=== PATIENT | male | born 1970 | race Caucasian/White ===

== ENCOUNTER 2020-08-30 23:28 | Emergency (ER) | payer OTHER ==
[~2020-08-30] VITALS: Ht 165.1 cm; Wt 56.0 kg
[2020-08-31] MEDS ORDERED: IBUPROFEN 600MG TABLET PO ONE (00:15)
[2020-08-31] MEDS ORDERED: SILVER SULFADIAZINE 1% CREAM 25GM TOP ONE (00:15)
[2020-08-31 00:54] VITALS: BP 162/104
== END 2020-08-31 01:19 | disposition home or self-care (01) ==
LOC: ER 23:28
DX: T23.202A Burn of second degree of left hand, unspecified site, initial encounter (principal); T31.10 Burns involving 10-19% of body surface with 0% to 9% third degree burns; T79.9XXA Unspecified early complication of trauma, initial encounter; X08.8XXA Exposure to other specified smoke, fire and flames, initial encounter; Y93.89 Activity, other specified; Y92.89 Other specified places as the place of occurrence of the external cause; Y99.8 Other external cause status
CPT/HCPCS: 16020; 99283; 99284